=== PATIENT | male | born 1955 | race Caucasian/White ===

== ENCOUNTER 2020-11-17 20:25 | Emergency (ER) | payer SELFPAY ==
--- NOTE | 2020-11-17 20:46 | PC.NURSE ---
spoke with desmond. patient is a registered donor.
--- NOTE | 2020-11-17 21:03 | PC.NURSE ---
corey sequeira at bedside talking with sister carolin limon who lives in [place].
[2020-11-17 21:07] VITALS: BP 0/0; PULSE 0; RESP 16; TEMP -17.7; TEMP 0; O2SAT 100; BMI 40.6
--- NOTE | 2020-11-17 21:42 | [facility].EDCPR ---
ED Disposition Clinical Impression: Cardiac arrest Disposition: Condition on Discharge: Referrals: Provider,Referral, [Primary Care Provider] - - Critical Care Critical Care Time: No Attestation: On 11/17/20, the high probability of a clinically significant, sudden or life threatening deterioration of the following system(s) required my full and direct attention, intervention and personal management. The time I documented below is in addition to time spent performing reported procedures but includes the following listed in this critical care notation. [facility] Code Documentation - Arrest Information Outside of Hospital The Code Document Section documentation for [id number] Cipriano Hermosillo was populated with data that defaulted in from the clinical documentation consultant in the Code Assessment on f_Reg Service Date] to provide within this report, the status and treatment of the patient in the ED during a Code. This documentation will be supplemented with my direct findings within the body of the report. Date Treatment Initiated: 11/17/20 Treatment Initiated By: EMS Location of Arrest: home Arrest Witnessed: Yes Estimated Down Time: 12 - ALS Code Inititation ALS Initiated By: EMS ALS Type: ACLS - Patient Condition At Code Start Condition of Patient at Start of Code: Pulseless, Apneic, Unconscious - Circulation Initial Cardiac Rhythm: Asystole - Oxygenation Oxygen Breathing Status: Apneic - Labs Fingerstick Blood Glucose: 102 - Code End Time Code Ended: 20:18 Patient Successfully Resuscitated: No Reason Code Ended: - Efforts Terminated Names of All Individuals Present at Code: dell,ana,harriet, samson,matthew,robyn,rt; - Patient Expiration Date: 11/17/20 Expiration Time: 20:18 Pronounced by: dell Time Pronounced: 20:18 Post Mortem Care Provided: Yes Organ Donor: No Thomas Notified: Yes Medical Decision Making - Medical Records Medical records reviewed: Yes: I reviewed the patient's medical records. - Julien Inquiry Pt receiving controlled substance: No Vital Signs: 11/17/20 21:07 Temperature 0 F L Temperature Source Rectal Pulse Rate [Right Brachial] 0 L Respiratory Rate 16 Blood Pressure [Right Arm] 0/0 L Blood Pressure Source [Right Arm] Automatic Cuff Blood Pressure Position [Right Arm] Sitting 02 Sat by Pulse Oximetry 100 Oxygen Delivery Method Ambu-Bag Medical Decision Narrative: acute cardio-pul arrest did not respond to acls protocol- in ed CPR HPI - General Chief Complaint: Cardiac Arrest/CPR Stated Complaint: witnessed cardiac arrest Time Seen by Provider: 11/17/20 21:10 Mode of Arrival: Family Vehicle Source of Information: EMS, Medical Record Limitations: Altered Mental Status Description of Symptoms (Recalled from ER Triage Doc. by RN): pt was a witnessed arrest at a friends home where he collapsed and cpr was initiated. ems was called and no rosc was ever achieved despite all efforts. arrived to er after approx 55 mins of acls and cpr and no rhythm noted. efforts terminated - History of Present Illness HPI narrative: reported witnessed arrest and bystander cpr - stated and ems with asystolic noted and acls protocol started - no response noted MD complaint: stopped breathing, collapsed during rest Associated injuries: No H History - Hepatitis A Screen Drug use history?: No High risk sexual behaviors?: No History of sexually transmitted infection?: No Currently employed?: No Childcare worker?: No Do you have indoor plumbing?: Yes Do you have electricity?: Yes Attestation statement:: This patient has been screened for Hepatitis A risk factors. I have reviewed the patient's past medical history: Yes ROS Obtained: Yes unobtainable due to mental status Physical Exam - General General appearance: other (nonresponsive ) - Head Head exam: atraumatic - Eye Eye exam: Present: other (fixed dil pupils ) -
--- NOTE | 2020-11-17 22:42 | PC.NURSE ---
carolin limon phone number [phone] given to jose rodgers
--- NOTE | 2020-11-17 23:42 | PC.NURSE ---
Diana from [facility] called to release pt from their standpoint.
--- NOTE | 2020-11-17 23:44 | PC.NURSE ---
Called [facility], s/w Carl, and notified DAVID has released pt
--- NOTE | 2020-11-18 00:23 | INFXCTL.NOTE ---
pt body to melvin and madie via stretcher. removed items from pockets at time of disposition. removed money clip and wallet with mag[place]on, belt, shoes, set of keys, knife, and change. given to melvin and madie in belongings bag with aleks brown as witness.
[2020-11-18 00:25] VITALS: BP 0/0; PULSE 0; RESP 0; TEMP -17.7; TEMP 0; O2SAT 0
== END 2020-11-18 00:27 | disposition expired ==
PROVIDERS: Emergency Provider Emergency Medicine
DX: I46.9 Cardiac arrest, cause unspecified (principal)
CPT/HCPCS: 96374; 99291